=== PATIENT | female | born 1975 | race African-American/Black ===

== ENCOUNTER 2018-05-03 16:18 | Inpatient (IN) | END 2018-05-09 15:05 | disposition home or self-care (01) | DRG 253 ==

== ENCOUNTER 2018-05-13 08:44 | Emergency (ER) | END 2018-05-13 11:40 | disposition home or self-care (01) ==

== ENCOUNTER 2019-02-09 10:58 | Inpatient (IN) | payer BC ==
[2019-02-08 11:57] VITALS: BMI 40.5
--- NOTE | 2019-02-08 21:51 | HP ---
Date/Time of Note Date/Time of Note DATE: 02/08/19 TIME: 21:34 Assessment/Plan VTE Prophylaxis SCD applied (from Nsg): Yes Pharmacological prophylaxis: other (will restart Eliquis after surgery.) Lines/Catheters IV Catheter Type (from [facility]): Peripheral IV Urinary Cath still in place: No Assessment/Plan Assessment/Plan A: Enlarged fibroid uterus. Menometrorrhagia unresponsive to medical management. P: MILO. HPI/ROS Admit Date/Time Admit Date/Time February 09, 2019 Hx of Present Illness 43 y.o. A1 with large fibroids and menorrhagia that has been unresponsive to hydrothermal ablation. Of note, the pt and I 1st had contact when she came in through the ER in 04/2018 with heavy bleeding and a DVT in her right leg. She had a D and C and a HTA. She was put on blood thinners and more recently Eliquis. She also had a IVC filter placed but it has since been removed. The clot, per her hydrodynamics professor, has completely resolved. The pt initially had a good result from the HTA but is now back to full on 7 days with the passing of very large blood clots in bursts. Had visited the idea of repeating the HTA but the patient then opted for definitive therapy in the form of a total abdominal hysterectomy. She wants her ovaries to remain. The uterus measured 14.5 x 7.4 x 13.1 cm with multiple fibroids with the largest fibroid measuring [address] English, who was managing the Eliquis, had her stop the Eliquis a week ago and we will restart it the day after surgery. He said she could stay off of it but out of an abundance of precaution it will be restarted, for now. ROS Respiratory: no complaints Cardiovascular: no complaints Gastrointestinal: no complaints Genitourinary: other (menometrorrhagia) Neurologic: no complaints Psychological: no complaints, nl mood/affect PMH/Family/Social Past Medical History Medical History: deep vein thrombosis (right leg 04/2018) Coded Allergies: No Known Allergy (Unverified , 05/13/18) Past Surgical History D and C followed by a hydrothermal ablation 04/2018. Hernia repair. Plastic surgery age 8. Family History Significant Family History: cancer (mom-breast), diabetes (sister, maternal GM), hypertension (maternal GM), other Social History Alcohol Use: occasionally Smoking Status: Former smoker Drug Use: marijuana Exam/Review of Systems Vital Signs Vitals BP 130/80 Exam Constitutional: alert, oriented, well developed Psych: no complaints, nl mood/affect Respiratory: clear to auscultation, normal air movement Cardiovascular: regular rate and rhythm, nl pulses Gastrointestinal: soft, nl liver, spleen, non-tender Genitourinary - Female: nl external genitalia, uterus (enlarged with multiple fibroids.) Musculoskeletal: nl extremities to inspection, nl gait and stance Neurological: GEAR ROLLER II-XII intact, nl mental status, nl speech JUAREZ LOPEZ MD February 08, 2019 21:45
[~2019-02-09] VITALS: Ht 165.1 cm; Wt 116.2 kg
[2019-02-09] VITALS (27 sets, daily range): BP systolic 125–155; BP diastolic 58–81; PULSE 62–77; RESP 11–20; Ht 165.1 cm; Wt 116.2 kg
[~2019-02-09 10:58] MED LIST: APIX5TAB PO; CEFAZOLIN 2 GM/50 ML (PMX) 50 ML IVPB ONE; CHOL100062 PO; FER325 PO; NEOSTIGMINE 3 MG/3 ML SYRINGE ONE
[2019-02-09] MEDS: LACTATED RINGER'S 1,000 ML IV SCH ×4 (12:24→21:59)
--- NOTE | 2019-02-09 13:36 | PREAC ---
Date/Time of Note Date/Time of Note DATE: 02/09/19 TIME: 13:35 Anesthesia Eval and Record Evaluation Time Pre-Procedure Interview DATE: 02/09/19 TIME: 13:35 Age 43 Sex female NPO: 8 hrs Preoperative diagnosis Uterine fibroids with menometrorrhagia Planned procedure MILO Past Medical History Past Medical History: Includes (H/O DVT) GI: Obesity Heme: Anemia Recreational drugs: Marijuana Surgery & Anesthesia Issues No known issue Meds Anticoagulation: No Beta Je within 24 hr: No Reason Beta Je not given: Pt. not on B-Je Active Scripts Ferrous Sulfate* (Ferrous Sulfate*) 325 Mg Tabec, 325 MG PO BID for 30 Days, #60 TAB Prov:ALESHIA PIERRE MD 05/09/18 Apixaban* (Eliquis*) 5 Mg Tablet, 10 MG PO BID for 7 Days, #14 TAB take higher dose for first week of treatment (8.21-8.28) then switch to lower maintenance dose when these pills run out Prov:ALESHIA PIERRE MD 05/09/18 Reported Medications Cholecalciferol* (Vitamin D3*) Unknown Strength Tablet, 1 TAB PO DAILY, TAB 05/13/18 Current Medications Lactated Ringer's 1,000 ml @ 125 mls/hr Q8H IV Last administered on 02/09/19at 12:24; Admin Dose 125 MLS/HR; Start 02/08/19 at 21:51 Meds reviewed: Yes Allergies Coded Allergies: No Known Allergy (Unverified , 05/13/18) Allergies Reviewed: Yes Labs/Studies Labs Reviewed: Reviewed by anesthesiologist Blood Bank Test 02/09/19 11:50 Antibody Screen NEGATIVE Blood Type A POSITIVE test: Negative Pre-procedure Exam Last vitals Vital Signs Date Temp Pulse Resp B/P (MAP) Pulse Ox O2 O2 Flow FiO2 Time Delivery Rate 02/09/19 98.3 65 16 141/76 98 Room Air 12:14 (97) Airway: Adequate mouth opening Mallampati: Mallampati II Teeth: Normal Lung: Normal Heart: Normal ASA Physical Status ASA physical status: 3 Emergency: None Planned Anesthetic General/MAC: ETT Planned Pain Management Parenteral pain med Pre-operative Attestations Prior to commencing anesthesia and surgery, the patient was re-evaluated, there was verification of: *The patient's identity *The results of appropriate recent lab work and preoperative vital signs *The above evaluation not changing prior to induction *Anesthetic plan, risk benefits, alternative and complications discussed with patient/family; questions answered; patient/family understands, accepts and wishes to proceed. RIVAS WOODARD MD February 09, 2019 13:36
[2019-02-09] MEDS ORDERED: PROPOFOL 20 ML ONE (13:57)
[2019-02-09] MEDS ORDERED: MEPERIDINE 100 MG INJ ONE (13:57)
[2019-02-09] MEDS ORDERED: ROCURONIUM 50 MG INJ ONE ×2 (13:57→14:12)
[2019-02-09] MEDS ORDERED: NEOSTIGMINE 3 MG/3 ML SYRINGE ONE ×2 (13:57→14:13)
[2019-02-09] MEDS ORDERED: GLYCOPYRROLATE 0.4 MG INJ ONE ×3 (13:57→14:13)
[2019-02-09] MEDS ORDERED: LIDOCAINE 2% (SDV) 5 ML INJ ONE (13:57)
[2019-02-09] MEDS ORDERED: SUCCINYLCHOLINE CHLORIDE 100 MG/5 ML SYG IV ONE (13:57)
[2019-02-09] MEDS ORDERED: CEFAZOLIN 1 GM INJ ONE (14:12)
[2019-02-09] MEDS ORDERED: METOCLOPRAMIDE 10 MG INJ ONE (14:12)
[2019-02-09] MEDS ORDERED: ONDANSETRON 4 MG INJ ONE (14:12)
[2019-02-09] MEDS ORDERED: FENTAnyl 50 MCG/ML VIAL IV PRN ×2 (15:30)
[2019-02-09] MEDS ORDERED: MIDAZOLAM 1 MG/ML 2 ML INJ IV PRN (15:30)
[2019-02-09] MEDS ORDERED: ONDANSETRON 4 MG INJ IV PRN ×2 (15:30→18:00)
[2019-02-09] MEDS ORDERED: EPHEDrine 25 MG/5 ML SYG IV PRN (15:30)
[2019-02-09] MEDS ORDERED: OXYCODONE/ACETAMINOPHEN (5/325) TAB PO PRN ×2 (15:30)
[2019-02-09] MEDS ORDERED: MEPERIDINE 25 MG INJ IV PRN (15:30)
[2019-02-09] MEDS ORDERED: LABETALOL HCL 20MG INJ IV PRN (15:30)
[2019-02-09] MEDS ORDERED: hydrALAzine 20 MG INJ IV PRN (15:30)
[2019-02-09] MEDS ORDERED: METOCLOPRAMIDE 10 MG INJ IV PRN (15:30)
[2019-02-09] MEDS ORDERED: HYDROmorphONE 1 MG/5 ML IV SYRINGE IV PRN ×3 (15:30)
[2019-02-09] MEDS ORDERED: DIPHENHYDRAMINE 50 MG INJ IV PRN (15:30)
[2019-02-09] MEDS ORDERED: INDIGOTINDISULFONATE 0.8% 5 ML INJ ONE (15:54)
[2019-02-09] MEDS ORDERED: FUROSEMIDE 20 MG INJ ONE (16:20)
[2019-02-09] MEDS ORDERED: FENTAnyl 50 MCG/ML VIAL ONE (17:16)
--- NOTE | 2019-02-09 17:49 | OPR ---
Date/Time of Note Date/Time of Note DATE: 02/09/19 TIME: 17:47 Operative Report Procedure Date: February 09, 2019 Preoperative Diagnosis Uterine fibroids. Menometrorrhagia. Postoperative Diagnosis Same Operation/Procedure Performed Supracervical hysterectomy. Bilateral fimbriectomy. Surgeon see signature line Advertising Account Representative Urvashi Cornell MD Anesthesia Type: general Anesthesiologist: RIVAS WOODARD MD Estimated Blood Loss: other (500) Transfusion none Specimen Uterus with fibroids and a portion of the cervix. Bilateral fimbria. Grafts/Implants none Complications none Pt Condition Post Procedure: stable Disposition: PACU Procedure Description Pt was brought to the OR, placed on the OR table and was place under general anesthesia. A freeman catheter was then placed and she was prepped and draped in the usual sterile fashion. A large Pfannensteil incision was made with a knife extending to the fascia. The Fascia was incised and extended b/l with scissors. The superior edge of the fascia was grasped with cherri clamps and the fascia was from the rectus muscles using blunt dissection and bovie cautery. This was repeated at the lower edge of the incision. The rectus muscles were and the peritoneum was entered using the surgeon's fingers. The incision was stretched open using hands. The uterus was appreciated as being very large, 18 weeks size, and bulky, especially deep within the pelvis. Proceeded to a myomectomy at the fundus first to help reduce the bulk in order to proceed to the hysterectomy. One that was accomplished then captured the round ligaments bilaterally cutting and suturing the ligaments. On the left side was able to make a window in the broad ligament and take down the utero-ovarian ligament, suture ligating along the way. Then secured the uterine artery as well with chromic suture. The right side was more difficult as there was a large anterior wall fibroid in the lower uterine segment. Took down the right tube an ovarian pedicle until could remove the uterine blood supply to the right adnexa. Then did another myomectomy.Then pushed down the bladder and then was able to capture the uterine vessels and suture ligate them. Cut off the body of the uterus. The cervix was noted to be incredibly long, traveling deep into the pelvis. Decided at this point to remove as much cervix as possible but leaving the deepest part for a supracervical hysterectomy. Removed another 3 cm of cx. Core out the central canal with the bovie. Closed the cervix with 0 vicryl suture in interrupted sutures. Removed both fimbria with a peon, cutting off the tissue and suture ligating the tissue with 0 chromic suture. attempted to loc ate the ureter on the right side but was not able to do so as the tissue was rather edematous. Called the urologist blue print control clerk and he suggested, as we did not think we injured the ureter but just could not locate it, that we inject indigo carmine into the pt and see if the urine in the freeman turns blue and also ensure that there is no extravasation of blue into the pelvis, of which there was none. Had to oversew the tissue gap on the right side to obtain hemostasis. Then irrigated the pelvis and it was noted to be dry. Placed a 1/2 piece of Interceed around each ovary. Placed Surgicel along the cervix. Then proceeded to close the peritoneum with 2-0 chromic. And then closed the fascia with 0 Vicryl suture. The subcutaneous layer was irrigated with water and then closed with 2-0 chromic. The skin was closed with 3-0 Monocryl with excellent tissue approximation and hemostasis. Steristrips with Mastasol were placed and a pressure dressing applied over all. The pt tolerated the procedure well, was awakened from general anesthesia and brought to the recovery room in excellent condition. JUAREZ LOPEZ MD February 09, 2019 17:49
[2019-02-09] MEDS: FENTAnyl 50 MCG/ML VIAL IV PRN ×3 (17:50→18:31)
--- NOTE | 2019-02-09 18:57 | PAC ---
Date/Time of Note Date/Time of Note DATE: 02/09/19 TIME: 18:57 Post-Anesthesia Notes Post-Anesthesia Note Last documented vital signs Vital Signs Date Temp Pulse Resp B/P (MAP) Pulse Ox O2 O2 Flow FiO2 Time Delivery Rate 02/09/19 64 17 153/68 100 Nasal 18:49 (96) Cannula 02/09/19 2.0 18:17 02/09/19 98.0 17:36 Activity: WNL Respiratory function: WNL Cardiovascular function: WNL Mental status: Baseline Pain reasonably controlled: Yes Hydration appropriate: Yes Nausea/Vomiting absent: Yes Comments BT: 98.3 RIVAS WOODARD MD February 09, 2019 18:57
[2019-02-09] MEDS: OXYCODONE/ACETAMINOPHEN (5/325) TAB PO PRN (20:47)
[2019-02-10] VITALS: BP 138/66; RESP 20
[2019-02-10] MEDS: OXYCODONE/ACETAMINOPHEN (5/325) TAB PO PRN ×5 (00:48→21:57)
[2019-02-10] MEDS: LACTATED RINGER'S 1,000 ML IV SCH ×5 (05:38→21:51)
[2019-02-10 08:25] VITALS: BP 125/60; PULSE 84; RESP 18
[2019-02-10 19:45] VITALS: BP 130/61; PULSE 83; RESP 18
--- NOTE | 2019-02-10 22:35 | QN ---
Documentation Comment POD #1 s/p supracervical hysterectomy. Pt is doing well. Adequate pain management. Wants to take the freeman out in the AM, not now. No flatus yet. TR=98.8 BP 130/61 Abdomen soft, ND. Dressing is clean, dry, and intact. Ext NT, no edema. WBC 10.2 Hgb 10.5 Plts 268K P: Will restart her Eliquis.Will d/c freeman and IV in AM. Ambulate in AM. Continue care for now. JUAREZ LOPEZ MD February 10, 2019 22:35
[2019-02-10] MEDS: APIXABAN 5 MG TABLET PO SCH (22:49)
[2019-02-11 02:19] VITALS: BP 129/56; PULSE 87; RESP 18
[2019-02-11] MEDS: OXYCODONE/ACETAMINOPHEN (5/325) TAB PO PRN ×4 (03:37→21:17)
[2019-02-11] MEDS: LACTATED RINGER'S 1,000 ML IV SCH (05:51)
[2019-02-11 07:49] VITALS: BP 137/64; PULSE 79; RESP 16
[2019-02-11] MEDS: APIXABAN 5 MG TABLET PO SCH ×2 (08:13→20:34)
--- NOTE | 2019-02-11 14:01 | QN ---
Documentation Comment POD #2 Pt is doing well. Voided independently and ambulating. Has yet to have a shower. T=99.4 BP 137/64 Abdomen soft, ND. Dressing clean, dry, and intact. Ext NT, no edema. P: Continue care. Wrote the d/c Rx in case the pt decides she wants to go home today, otherwise d/c for tomorrow. JUAREZ LOPEZ MD February 11, 2019 14:01
[2019-02-11 16:40] VITALS: BP 156/85; PULSE 80; RESP 14
[2019-02-11 20:20] VITALS: BP 130/59; PULSE 87; RESP 18
[2019-02-12 02:25] VITALS: BP 138/65; PULSE 86; RESP 18
[2019-02-12 08:05] VITALS: BP 125/77; PULSE 80; RESP 18
[2019-02-12] MEDS ORDERED: APIX5TAB PO (08:10)
--- NOTE | 2019-02-12 08:13 | DS ---
Date/Time of Note Date/Time of Note DATE: 02/12/19 TIME: 08:04 Discharge Summary Admission/Discharge Info Admit Date/Time February 09, 2019 at 10:58 Discharge Date/Time February 12, 2019 Discharge Diagnosis Uterine fibroids, menometrorrhagia. Patient Condition: Good Procedures Supracervical hysterectomy, bilateral salpingectomy. Hx of Present Illness 43 y.o. A1 with large fibroids and menorrhagia that has been unresponsive to hydrothermal ablation. Of note, the pt and I 1st had contact when she came in through the ER in 04/2018 with heavy bleeding and a DVT in her right leg. She had a D and C and a HTA. She was put on blood thinners and more recently Eliquis. She also had a IVC filter placed but it has since been removed. The clot, per her hotel operation manager, has completely resolved. The pt initially had a good result from the HTA but is now back to full on 7 days with the passing of very large blood clots in bursts. Had visited the idea of repeating the HTA but the patient then opted for definitive therapy in the form of a total abdominal hysterectomy. She wants her ovaries to remain. The uterus measured 14.5 x 7.4 x 13.1 cm with multiple fibroids with the largest fibroid measuring [address] English, who was managing the Eliquis, had her stop the Eliquis a week ago and we will restart it the day after surgery. He said she could stay off of it but out of an abundance of precaution it will be restarted, for now. Hospital Course Pt did very well postoperatively. The freeman catheter and IV were d/c'ed early on the 2nd post-op day and the pt ambulated. She has excellent pain control. The Eliquis was restarted on the 1st post-op day. She has her mother and sister at home to help her.The dressing was removed on the 3rd post-op day and the incision is clean, dry and intact. No edema or swelling noted on either leg. Home Meds Active Scripts Apixaban* (Eliquis*) 5 Mg Tablet, 5 MG PO DAILY, #30 TAB Prov:JUAREZ LOPEZ MD 02/12/19 Ferrous Sulfate* (Ferrous Sulfate*) 325 Mg Tabec, 325 MG PO BID for 30 Days, #60 TAB Prov:ALESHIA PIERRE MD 05/09/18 Reported Medications Cholecalciferol* (Vitamin D3*) Unknown Strength Tablet, 1 TAB PO DAILY, TAB 05/13/18 Follow-up Plan Follow-up with Dr Lopez in 2 weeks. Primary Care Provider Brandee Coelho MD Time spent on discharge: < 30 minutes JUAREZ LOPEZ MD February 12, 2019 08:13
--- NOTE | 2019-02-12 08:14 | PD.PPDC ---
DATABASE SECURITY ADMINISTRATOR Discharge Instruction Condition [id number] Patient Condition: Gyboa2i Good Diet [id number] Diet: Ndhgx7q Resume Regular Diet Activity/Restrictions [id number] Activity: [id number] Bedrest May be up to bathroom May be up for meals May Shower [id number] Restrictions: Uveyg8h No Exercising No Lifting No Driving Minimize Walking Minimize Stair-climbing No Sexual Activity Nothing in the Vagina No [place] No Tampons, douche Wound/Drain Care Instructions [id number] Wound/Drain Care Pxahe6a Remove Steri Strips in 2 Instructions: weeks Keep clean and dry Follow-up Follow-up with Physician: 2, Week/Weeks Return to clinic for [id number] ROPE COILING MACHINE OPERATOR Instructions: Pfjux7o Fever greater than 101 Chills Worsening abdominal pain Excessive Vaginal Bleeding [id number] OB Instructions: Mesxj1c Depression [id number] Surgical Instructions: Iejna7s Incisional Drainage Incisional Redness JUAREZ LOPEZ MD February 12, 2019 08:14
[2019-02-12] MEDS: APIXABAN 5 MG TABLET PO SCH (09:28)
[2019-02-12] MEDS: OXYCODONE/ACETAMINOPHEN (5/325) TAB PO PRN (09:28)
== END 2019-02-12 11:00 | disposition home or self-care (01) | DRG 742 ==
LOC: REC 10:58 → MS1 19:51
PROVIDERS: ADMIT Obstetrics & Gynecology; ATTEND Obstetrics & Gynecology
PROC: 0UT70ZZ Resection of Bilateral Fallopian Tubes, Open Approach (ICD-10-PCS; 2019-02-09)
PROC: 0UBC0ZZ Excision of Cervix, Open Approach (ICD-10-PCS; 2019-02-09)
PROC: 0UT90ZL Resection of Uterus, Supracervical, Open Approach (ICD-10-PCS; principal; 2019-02-09 13:00)
DX: D25.9 Leiomyoma of uterus, unspecified (principal); Z68.41 Body mass index [BMI] 40.0-44.9, adult; N92.1 Excessive and frequent menstruation with irregular cycle; E66.9 Obesity, unspecified; D64.9 Anemia, unspecified; Z86.718 Personal history of other venous thrombosis and embolism
CPT/HCPCS: 80048; 84703; 85025; 86850; 86900; 86901; 88307; J0690; J1170; J1940; J2175; J2405; J2710; J2765; J3010; J7120